=== PATIENT | female | born 1980 | race Caucasian/White ===

== ENCOUNTER 2022-05-28 05:09 | Day surgery (SDC) | payer OTHER ==
[2022-05-23 11:11] VITALS: BMI 37.8
[2022-05-28] MEDS ORDERED: IBUPROFEN 600 MG TABLET (FP) PO PRN (07:49)
[2022-05-28] MEDS ORDERED: IBUPROFEN 800 MG/8 ML IJ IVPB PRN (07:49)
[2022-05-28] MEDS ORDERED: oxyCODONE HCL 5 MG TABLET PO PRN (07:49)
[2022-05-28] MEDS ORDERED: ONDANSETRON 4 MG/2 ML VIAL IVPUSH PRN (07:49)
[2022-05-28] MEDS ORDERED: ELECTROLYTE-148 SOLN 1,000 ML IV SCH (08:00)
[2022-05-28] MEDS ORDERED: ONDANSETRON 4 MG/2 ML VIAL ONE (08:33)
[2022-05-28] MEDS ORDERED: LIDOCAINE HCL/PF 2% SDV 5ML VIAL ONE (08:33)
[2022-05-28] MEDS ORDERED: DEXAMETHASONE SOD PHOSPHATE 4 MG/1 ML VIAL ONE (08:33)
[2022-05-28] MEDS ORDERED: PROPOFOL 20 ML ONE (08:34)
[2022-05-28] MEDS ORDERED: KETOROLAC TROMETHAMINE 30 MG/1 ML VIAL ONE (08:39)
[2022-05-28] MEDS ORDERED: SEVOFLURANE 250 ML BTL ONE (09:03)
[2022-05-28] MEDS ORDERED: ESMOLOL HCL 100,000 MCG/10 ML VIAL ONE (09:25)
[2022-05-28] MEDS ORDERED: LABETALOL HCL 20 MG/4 ML VIAL ONE (09:36)
[2022-05-28] MEDS ORDERED: LACTATED RINGERS SOLUTION 1,000 ML IV SCH (10:00)
[2022-05-28] MEDS ORDERED: ALBUTEROL SO4 0.083% IH SOL 2.5 MG/3 ML VIAL.NEB. NEB ONE (11:00)
[2022-05-28 12:21] VITALS: RESP 18
[2022-05-28 12:42] VITALS: BP 122/86; PULSE 82
[2022-05-28 12:44] VITALS: TEMP 97
== END 2022-05-28 12:44 | disposition home or self-care (01) ==
LOC: JASU-SURG 05:09 → EDSEX 11:00 → JASU-SURG 12:44
PROVIDERS: ATTEND Obstetrics & Gynecology
PROC: 0UB98ZZ Excision of Uterus, Via Natural or Artificial Opening Endoscopic (ICD-10-PCS; principal; 2022-05-28 08:30)
DX: N92.0 Excessive and frequent menstruation with regular cycle (principal); D25.0 Submucous leiomyoma of uterus
CPT/HCPCS: 81025; 88305-TC; 94760